=== PATIENT | male | born 1970 | race Hispanic/Latino ===

== ENCOUNTER 2019-11-02 16:46 | Inpatient (IN) | payer SELFPAY ==
[~2019-11-02] VITALS: Ht 177.8 cm; Wt 65.0 kg
[~2019-11-02 16:46] MED LIST: DULCOLAX SS100 MG PO; NAPROSYN500 MG PO; TYLENOL # 31 TAB PO
--- NOTE | 2019-11-02 16:54 | NUR ---
Pt ambulated to room # 8 with steady gait for bedside triage
--- NOTE | 2019-11-02 17:15 | NUR ---
IV ACCESS OBTAINED, LABS DRAWN AND PT EDUCATED REGARDING NEED FOR URINE SPECIMEN ALONG WITH EDUCATION ON PROPER COLLECTION TECHNIQUE. PT VERBALIZES UNDERSTNADING.
[2019-11-02 17:48] LABS: HEMATOCRIT 38.5 % (39.0-50.0); HEMOGLOBIN 13.9 g/dl (14.0-18.0); IMMATURE GRANULOCYTES 0.5 % (0.0-5.0); MEAN CELL VOLUME 88.9 fL CALC (80.0-100.0); MEAN CORPUSCULAR HGB 32.1 pG CALC (26.0-32.0); MEAN CORPUSCULAR HGB CONC 36.1 g/dL CAL (32.0-36.0); NEUT# 3.83 thou/uL (1.82-7.42); RED BLOOD COUNT 4.33 mill/uL (4.70-6.10); RED CELL DISTRI WIDTH 10.9 % (11.5-15.5)
--- NOTE | 2019-11-02 17:56 | NUR ---
PT TO RADIOLOGY VIA WHEELCHAIR, MEDICATED EARLIER FOR HYPERTENSION, WILL MONITOR B/P CLOSELY.
[2019-11-02 17:59] LABS: URINE BILIRUBIN - DIPSTICK NEGATIVE (NEGATIVE); URINE BLOOD DIPSTICK MODERATE (NEGATIVE); URINE COLOR YELLOW; URINE GLUCOSE - DIPSTICK >=1000 mg/dL (NEGATIVE); URINE KETONE TRACE mg/dL (NEGATIVE); URINE LEUK ESTERASE NEGATIVE (NEGATIVE); URINE NITRITE - DIPSTICK NEGATIVE (Negative); URINE PROTEIN - DIPSTICK NEGATIVE (NEG-TRACE); URINE SPECIFIC GRAVITY 1.015; URINE UROBILINOGEN - DIPSTICK >=8.0 E.U./dL (0.2)
[2019-11-02 18:06] LABS: ALBUMIN 3.2 g/dL (3.2-5.0); ALKALINE PHOSPHATASE 108 u/l (38-126); ANION GAP 13 (6-22 (CALC)); BUN 9 mg/dL (9-20); BUN/CREATININE RATIO 22 (12-20 (CALC)); CARBON DIOXIDE 26 mmol/l (22-30); CHLORIDE 90 mmol/l (95-108); CREATININE 0.4 mg/dL (0.7-1.3); GFR > 60 ML/MIN (>=60 (CALC)); GFR FOR AFR.AMER. > 60 ML/MIN (>=60 (CALC)); POTASSIUM 3.9 mmol/l (3.5-5.1); SGOT/AST 83 u/l (17-59); SODIUM 125 mmol/l (137-146); TOTAL PROTEIN 6.8 g/dL (6.3-8.2)
[2019-11-02 18:07] LABS: URINE WBC 0-2 WBC/hpf (0-5)
--- NOTE | 2019-11-02 18:29 | NUR ---
PT MEDICATED FOR ELEVATED BS ORDERED
[2019-11-02 18:58] LABS: C-REACTIVE PROTEIN 2.5 mg/dL (0-0.9)
--- NOTE | 2019-11-02 22:08 | NUR ---
Admission Note Report Given to: ISSA RIVERA Transported by: X Wheelchair Stretcher Transported with: X Nurse Transporter X Patent IV O2 X Car Blocker Location: ICU X MS2
[2019-11-02 22:23] VITALS: BP 119/84
--- NOTE | 2019-11-02 22:25 | NUR ---
RECEVIED FROM ER VIA WC INTO ROOM 283. PATIENT AMBULATED FROM WC TO STANDING SCALE FOR ADMISSION WEIGHT AND THEN TO BED. STANCE AND GAIT STABLE. RESP NON-LABORED. LUNGS DIMINISHED BUT CLEAR. SALINE LOCK INTACT IN RFA, SITE BENIGN. ADMISSION ASSESSMENT COMPLETED WITH ASSISTANCE OF JEREMY/MARTA. PATIENT IS BELARUSIAN SPEAKING, UNDERSTANDS SOME MACEDONIAN. ORIENTED TO SURROUNDINGS. EXPLAINED PLAN OF CARE, ISOLATION ROOM. DENIES NEEDS AT THIS TIME. CALL HAWLEY IN REACH.
[2019-11-02 23:45] VITALS: BP 141/90
--- NOTE | 2019-11-03 00:45 | NUR ---
PATIENT ASLEEP ON ORUNDS. AWAKENS TO NAME. BLOOD DRAWN FOR TROPONIN LEVEL ORDERED.
[2019-11-03 03:29] VITALS: BP 168/102
--- NOTE | 2019-11-03 04:30 | NUR ---
PATIENT AWAKENS TO NAME. PHOTO DOCUMENTATION COMPLETED OF ULCERS TO TOES. BLOOD DRAWN FOR AM LKABS ORDERED.
[2019-11-03 05:56] LABS: HEMATOCRIT 37.4 % (39.0-50.0); HEMOGLOBIN 13.1 g/dl (14.0-18.0); IMMATURE GRANULOCYTES 0.6 % (0.0-5.0); MEAN CELL VOLUME 90.3 fL CALC (80.0-100.0); MEAN CORPUSCULAR HGB 31.6 pG CALC (26.0-32.0); NEUT# 3.58 thou/uL (1.82-7.42); RED BLOOD COUNT 4.14 mill/uL (4.70-6.10); RED CELL DISTRI WIDTH 10.9 % (11.5-15.5)
[2019-11-03 06:24] LABS: ALKALINE PHOSPHATASE 81 u/l (38-126); ANION GAP 13 (6-22 (CALC)); BUN 9 mg/dL (9-20); BUN/CREATININE RATIO 22 (12-20 (CALC)); CALCULATED LDLCHOLESTEROL 66 mg/dL (62-129 (CALC)); CARBON DIOXIDE 23 mmol/l (22-30); CHLORIDE 95 mmol/l (95-108); CHOLESTEROL HDL RATIO 6.9 (<4.4 (CALC)); CREATININE 0.4 mg/dL (0.7-1.3); GFR > 60 ML/MIN (>=60 (CALC)); GFR FOR AFR.AMER. > 60 ML/MIN (>=60 (CALC)); HDL CHOLESTEROL 14 mg/dL (>=40); SGOT/AST 48 u/l (17-59); SODIUM 128 mmol/l (137-146); TOTAL CHOLESTEROL 97 mg/dl (0-199); TOTAL PROTEIN 5.7 g/dL (6.3-8.2); TOTAL TRIGLYCERIDES 86 mg/dl (30-149); VLDL CHOLESTROL 17 mg/dl (5-56 (CALC))
[2019-11-03 06:33] LABS: ALBUMIN 2.5 g/dL (3.2-5.0)
[2019-11-03 07:52] VITALS: BP 141/87
--- NOTE | 2019-11-03 08:05 | NUR ---
RECIEVED REPORT FROM ISSA RIVERA. PT IN SEMI FOWLERS POSITION EATINH BREAKFAST WHEN ENTERING ROOM. INTRODUCED SELF TO PT AND DISCUSSED POC.PT IS PERRED SPANISHED BUT DOES UNDERSTAND MAURITIAN. PT IS A/O X3 AND AMBULATORY. ASSESSMENT AND VITALS COMPLETED AT THIS TIME. BP 141/87, HR 105, O2 99% ON ROOM AIR. RESPIRATIONS ARE EVEN AND UNLABORED. LUNG SOUNDS ARE CLEAR. HEART RHYTHM IS NORMAL, TELE IN PLACE. BOWEL SOUNDS ARE ACTIVE, LAST REPORTED BM 11/03/19. RADIAL AND PEDAL PULSES ARE STRONG WITH NORMAL CAPILLARY REFILL. PT DOES PRESENT WITH SCABBED OVER SKIN BREAKDOWN ON TOES. PT REPORTS "ITS FROM WORKING IN [place]". NO EDEMA IN ANY EXTREMITIES. PT DENIES ANY PAIN OR DISCOMFORTS AT THIS TIME. ALL SAFTEY PRECAUTIONS IN PLACE WITH CALL LIGHT IN REACH. WILL CONTIUE TO MONITOR.
[2019-11-03 10:56] VITALS: BP 133/92
--- NOTE | 2019-11-03 11:35 | NUR ---
PT RESTING IN SEMI FOWLERS POSITION. RESPIRATIONS ARE EVEN AND UNLABORED AT THIS TIME. NOVOLOG GIVEN FOR GLUCOSE RESULTING IN 327. PT DENIES ANY PAIN OR DISOCOMFORTS AT THIS TIME. ALL SAFTEY PRECAUTIONS REMAIN IN PLACE WITH CALL LIGHT IN REACH AND TELE IN PLACE. WILL CONTINUE TO MONITOR
[2019-11-03 15:15] VITALS: BP 119/82
--- NOTE | 2019-11-03 16:40 | NUR ---
PT RESTING IN SEMI FOWLERS POSITION. RESPIRATIONS ARE EVEN AND UNLABORED WITH NO SIGNS OF DISTRESS. PT STARTED ON FLUIDS RUNNING AT 75 ML ORDERED NORVASC ALSO ORDERED. PT DENIES ANY PAIN OR DISCOMFORTS AT THIS TIME. ALL SAFTEY PRECAUTIONS REMAIN IN PLACE WITH CALL LIGHT IN REACH. WILL CONTINUE TO MONITOR
--- NOTE | 2019-11-03 19:00 | NUR ---
RECEIVED REPORT FROM NURSE SCHMITT, PATIENT RESTING IN BED, CURRENTLY WATCHING TV NO DISCOMFORTS NOTED AT THIS TIME, BREATHING EVEN AND UNLABORED.
[2019-11-03 19:07] VITALS: BP 125/88
--- NOTE | 2019-11-03 20:00 | NUR ---
PATIENT ALERT ORIENTED ABLE TO MAKE NEEDS KNOWN, GAMBIAN SPEAKING BUT ABLE TO UNDESTAND GUYANESE, DENIES PAIN AND DISCOMNFORTS WITH ONGOING IV OF NS @ 75CC/HR INFUSING WELL ON RFA, REMAINS ON TELE SR 84, BREATHING EVEN AND UNLABORED, CALL LIGHT AT REACH.
[2019-11-03 22:55] VITALS: BP 138/86
--- NOTE | 2019-11-04 | NUR ---
PATIENT APPEARS TO BE SLEEPING WITH EYES CLOSED EVEN UNLABORED RESPIRATION CA;LL LIGHT AT REACH.
[2019-11-04 03:55] VITALS: BP 133/90
--- NOTE | 2019-11-04 04:00 | NUR ---
PATIENT AWAKE AT THIS TIME, VOICE NO COMPLAINTS, NOT IN DISTRESS, CURRENTLY WATCHING TV, CALL LIGHT AT REACH.
--- NOTE | 2019-11-04 07:46 | NUR ---
SPOKE WITH MICRO LAB THIS AM, 2 OF 4 BOTTLES SHOW GRAM POSITIVE COCCI. VANCO ORDERED PER DR FLYNN
[2019-11-04 08:34] VITALS: BP 148/95
--- NOTE | 2019-11-04 08:56 | NUR ---
RECIEVED REPORT FROM ISSA LINCOLN. PT RESTING IN SEMI FOWLERS POSITION UPON ENTERING ROOM. ASSESSMENT AND VIATLS COMPLETED AT THIS TIME. BP 148/95, HR 79, O2 99% ON ROOM AIR. RESPIRATIONS ARE EVEN ADN UNLABORED. LUNG SOUNDS ARE CLEAR. HEART RHYTHM IS NORMAL, TELE IN PLACE.BOWEL SOUNDS ARE HYPOACTIVE,LAST REPORTED BM 11/04/19 EARLIER IN THE [place]. RADIAL AND PEDAL PULSES ARE STRONG WITH NORMAL CAPILLARY REFILL. PT DOES PRESENT WITH SKIN BREAK ON TOES. SITES ARE SCABBED OVER. PT STATES IT FROM "WORKING IN THE [place]", NO DRESSING ARE APPLIED. PT DENIES ANY PAIN OR DISCOMFORTS AT THIS TIME. ALL SAFTEY PERCAUTIONS IN PLACE WITH CALL LIGHT IN EACH. WILL CONTIUE TO MONITOR.
--- NOTE | 2019-11-04 11:30 | NUR ---
PT RESTING IN SEMI FOWLERS POSITION WATCHING TV. RESPIARTIONS ARE EVEN AND UNLABORED. ISSA MUIR CALLED IN ROOM TO ASSIST IN TRANSLATION. IN TRANSLATION, PT STATED HE "DIDNT HAVE ANY QUESTION OR NEEDS". PT DENIES ANY PAINS OR DISCOMFORTS AT THIS TIME. ALL SAFTEY PRECAUTIONS IN PLACE WITH CALL LIGHT IN REACH. WILL CONTINUE TO MONITOR
[2019-11-04 11:36] VITALS: BP 145/96
--- NOTE | 2019-11-04 15:03 | NUR ---
PT PRESENTS WITH MRSA PNEUMONIA AND GRAM POSITIVE COCCI GROWING IN 2/4 BLOOD CX. VANCOMYCIN ORDERED FOR PHARMACY TO DOSE. INITIATE VANCOMYCIN 1250MG IV Q12H. DRAW TROUGH 30 MIN B4 4TH DOSE ON 11/04 @ 1930. GOAL TROUGH = 15-20 MCG/ML. PHARMACY WILL CONTINUE TO FOLLOW.
[2019-11-04 16:03] VITALS: BP 162/99
--- NOTE | 2019-11-04 16:45 | NUR ---
REASSESSMENT OF VITALS BP 161/99, HR 85, O2 96%. RESPIRATIONS ARE EVEN AND UNLABORED AT THIS TIME ALL SAFTEY PRECAUTIONS REMAIN IN PLACE WITH CALL LIGHT IN REACH. WILL CONTINUE TO MONITOR
--- NOTE | 2019-11-04 20:00 | NUR ---
PT RESTING IN BED, NO SIGNS OF DISTRESS NOTED, RESP EVEN AND UNLABORED, PT SPEAKS [place], UNION LABORER SPOKE WITH PT IN [place]. DISCUSSED POC, PT VERBALIZED UNDERSTANDING. DISCUSSED ANTIBIOTICS WITH PT AND PT AGREED TO HAVE ANOTHER IV FOR ANTIBIOTICS, NOTED SCABS TO TOES, SEE CHART FOR PHOTO. ASSESSMENT COMPLETED, CALL LIGHT IN REACH,CONTINUE TO MONITOR.
[2019-11-04 20:30] VITALS: BP 158/88
--- NOTE | 2019-11-04 20:55 | NUR ---
DIABETES NURSE RETURNED FOR IV SITE, #20G PLACED TO L WRIST FOR JENNIFERO, PT TOLERATED WELL. CALL LIGHT IN REACH,CONTINUE TO MONITOR.
[2019-11-04 23:25] VITALS: BP 179/100
[2019-11-05] VITALS (9 sets, daily range): BP systolic 117–167; BP diastolic 56–104
--- NOTE | 2019-11-05 00:22 | NUR ---
RN AT BEDSIDE GIVING IV APRESOLINE, MANUAL BP 179/100.
--- NOTE | 2019-11-05 04:35 | NUR ---
PT RESTING IN BED, DISCUSSED AM LABS, PT VERBALIZED UNDERSTANDING. LABS OBTAINED, PT TOLERATED WELL. CALL LIGHT IN REACH,CONTINUE TO MONITOR.
[2019-11-05 05:35] LABS: HEMATOCRIT 39.3 % (39.0-50.0); HEMOGLOBIN 13.8 g/dl (14.0-18.0); IMMATURE GRANULOCYTES 0.4 % (0.0-5.0); MEAN CELL VOLUME 90.3 fL CALC (80.0-100.0); MEAN CORPUSCULAR HGB 31.7 pG CALC (26.0-32.0); MEAN CORPUSCULAR HGB CONC 35.1 g/dL CAL (32.0-36.0); NEUT# 2.9 thou/uL (1.82-7.42); RED BLOOD COUNT 4.35 mill/uL (4.70-6.10); RED CELL DISTRI WIDTH 11.1 % (11.5-15.5)
[2019-11-05 06:10] LABS: ALBUMIN 2.8 g/dL (3.2-5.0); ALKALINE PHOSPHATASE 101 u/l (38-126); ANION GAP 10 (6-22 (CALC)); BILIRUBIN, TOTAL 0.7 mg/dL (0.0-1.4); BUN 8 mg/dL (9-20); BUN/CREATININE RATIO 19 (12-20 (CALC)); CARBON DIOXIDE 25 mmol/l (22-30); CHLORIDE 100 mmol/l (95-108); CREATININE 0.4 mg/dL (0.7-1.3); GFR > 60 ML/MIN (>=60 (CALC)); GFR FOR AFR.AMER. > 60 ML/MIN (>=60 (CALC)); POTASSIUM 3.8 mmol/l (3.5-5.1); SGOT/AST 42 u/l (17-59); SODIUM 131 mmol/l (137-146); TOTAL PROTEIN 6.2 g/dL (6.3-8.2)
--- NOTE | 2019-11-05 08:05 | NUR ---
PT SLEEPING IN BED AWAKENED TO COMPLETE ASSESSMENT. A&O X3. NO DISTRESS NOTED. LIGHT FLUSHING TO FACE NOTED. PT DENIES ANY EXCERTIONAL SOB OR PAIN AT THIS TIME. CIWA 0 AT THIS TIME. NO OTHER NEEDS AT THIS TIME. ASSESSMENT COMPLETED. DISCUSSED POC. ISOLATION PRECAUTIONS IN PLACE. CALL LIGHT IN REACH. CONTINUE TO MONITOR.
--- NOTE | 2019-11-05 15:34 | NUR ---
HYDRALAZINE 10MG GIVEN IVP FOR BP 166/104 HR 83
--- NOTE | 2019-11-05 17:17 | NUR ---
PT SITTING IN BED. NO DISTRESS NOTED. CALL LIGHT IN REACH. CONTINUE TO MONITOR
--- NOTE | 2019-11-05 19:30 | NUR ---
PT RESTING IN BED, NO SIGNS OF DISTRESS NOTED, RESP EVEN AND UNLABORED. PT ALERT AND ORIENTED X3, SW[place]ISH SPEAKING ONLY, TRANSIT CLERK SPEAKS SW[place]ISH. DISCUSSED POC, PT VOICES NO NEEDS OR COMPLAINTS AT THIS TIME. ASSESSMENT COMPLETED, CALL LIGHT IN REACH,CONTINUE TO MONITOR.
--- NOTE | 2019-11-05 21:10 | NUR ---
IV RASHAD INITIATED, PT VOICES NO NEEDS OR COMPLAINTS, CALL LIGHT IN REACH,CONTINUE TO MONITOR.
--- NOTE | 2019-11-05 22:15 | NUR ---
PT RESTING IN BED, DISCUSSED ORDERS FOR BLOOD CULTURES, PT VERBALIZED UNDERSTANDING. BLOOD CULTURES OBTAINED FROM TWO DIFFERENT SITES, PT TOLERATED WELL. CALL LIGHT IN REACH,CONTINUE TO MONITOR.
[2019-11-06] VITALS (7 sets, daily range): BP systolic 116–147; BP diastolic 83–93
--- NOTE | 2019-11-06 | NUR ---
PT HAS ELEVATED BP, RN AT BEDSIDE GIVING IV APRESOLINE.
--- NOTE | 2019-11-06 04:00 | NUR ---
PT RESTING IN BED, NO SIGNS OF DISTRESS NOTED, RESP EVEN AND UNLABORED. PT VOICES NO NEEDS OR COMPLAINTS AT THIS TIME. CALL LIGHT IN REACH,CONTINUE TO MONITOR.
--- NOTE | 2019-11-06 08:01 | NUR ---
PT SITTING IN BED EATING BREAKFAST. A&O X3. NO DISTRESS NOTED. SLIGHT FLUSHING TO FACE NOTED. PT DENIES ANY EXCERTIONAL SOB. NO OTHER NEEDS AT THIS TIME. ASSESSMENT COMPLETED. DISCUSSED POC. CALL LIGHT IN REACH. CONTINUE TO MONITOR.
--- NOTE | 2019-11-06 11:22 | NUR ---
PT SITTING IN BED. NO DISTRESS OR NEEDS AT THIS TIME. CALL LIGHT IN REACH. CONTINUE TO MONITOR.
--- NOTE | 2019-11-06 17:28 | NUR ---
PT SITTING IN CHAIR. NO DISTRESS OR NEEDS AT THIS TIME. CALL LIGHT IN REACH. CONTINUE TO MONITOR.
--- NOTE | 2019-11-06 22:10 | NUR ---
PT ASSESSMENT COMPLETED AT THIS TIME. IV ANTIBIOTIC THERAPY ADMINISTERED AND PM MEDICATIONS ORDERS PROVIDE. PT DENIES ANY PAIN/N/V, NO S/O DISTRESS NOTED. IV SITE TO RFA APPEARS HEALTHY AT THIS TIME.
--- NOTE | 2019-11-07 00:20 | NUR ---
IV PUMP SOUNDING, PT DENIES ANY NEEDS. HVAC DESIGNER WAS JUST IN OBTAINING V/S. NO S/O DISTRESS NOTED AT THIS TIME.
[2019-11-07 03:39] VITALS: BP 153/87
--- NOTE | 2019-11-07 05:05 | NUR ---
BLOOD DRAWN FOR LABS/UNABLE TO OBTAIN. WILL NOTIFY DAY NURSE/LAB. NO S/O DISTRESS NOTED AT THIS TIME.
--- NOTE | 2019-11-07 08:15 | NUR ---
LAB DRAWN BY MYSELF FOR TESTING
[2019-11-07 08:39] LABS: HEMATOCRIT 37.8 % (39.0-50.0); HEMOGLOBIN 13.1 g/dl (14.0-18.0); MEAN CELL VOLUME 90.2 fL CALC (80.0-100.0); MEAN CORPUSCULAR HGB 31.3 pG CALC (26.0-32.0); MEAN CORPUSCULAR HGB CONC 34.7 g/dL CAL (32.0-36.0); RED BLOOD COUNT 4.19 mill/uL (4.70-6.10); RED CELL DISTRI WIDTH 11.3 % (11.5-15.5)
[2019-11-07 08:55] LABS: ANION GAP 11 (6-22 (CALC)); BUN 13 mg/dL (9-20); BUN/CREATININE RATIO 35 (12-20 (CALC)); C-REACTIVE PROTEIN 0.9 mg/dL (0-0.9); CARBON DIOXIDE 24 mmol/l (22-30); CHLORIDE 100 mmol/l (95-108); CREATININE 0.4 mg/dL (0.7-1.3); GFR > 60 ML/MIN (>=60 (CALC)); GFR FOR AFR.AMER. > 60 ML/MIN (>=60 (CALC)); POTASSIUM 4.3 mmol/l (3.5-5.1); SODIUM 131 mmol/l (137-146)
[2019-11-07 09:30] VITALS: BP 90/61
--- NOTE | 2019-11-07 09:30 | NUR ---
ASSESSMENT IS COMLETED: IV SITE IS FREE FROM REDNESS OR EDEMA. HR IS REG,PULSES ARE STRONG X4, ABD IS SOFT WITH ACTIVE BS . BREATH SOUNDS ARE CLEAR BILATERALLY. NO C/O SOB. TELE MONITOR IN PLACE CONTINUE TO OSBERVE AND MONITOR.
[2019-11-07 10:26] VITALS: BP 90/61
[2019-11-07] MEDS ORDERED: AMLODIPINE BESYL5 MG PO (11:24)
[2019-11-07] MEDS ORDERED: GLIPIZIDE5 M2 PO (11:25)
[2019-11-07] MEDS ORDERED: METFORMIN500 M2 PO (11:26)
[2019-11-07] MEDS ORDERED: LEVAQUIN750 MG PO (11:27)
[2019-11-07] MEDS ORDERED: LIBRIUM25 M1 PO (11:27)
--- NOTE | 2019-11-07 13:10 | NUR ---
IV SITE DISCOMTINUED CATHETER INTACT. NO REDNESS OR EDEMA. DISCHARGE INSTRUCTIONS GIVEN AND INTERPRETED BY LEONORA WHATLEY. VERBALIZED UNDERSTANDING, WILL CALL PHARMACY TO SEE IF MEDS ARE READY Discharge instructions given. Patient verbalizes understanding of same. Discharged in stable condition via Ambulatory to Home with family. All belongings sent with pt.
--- NOTE | 2019-11-07 13:10 | NUR ---
PT HAS BEEN RELAXING IN THE CHAIR, NO DISTESS NOTED. IV SITE IS FREE FROM REDNESS OR EDEMA.
--- NOTE | 2019-11-07 14:46 | NUR ---
ALL THE TEACHING WERE SENT IN FINNISH. LEONORA WHATLEY SPOKE TO HIM ABOUT HIS MEDICATION AND HELPED MAKE A LIST OF TIMES FOR THE MEDS.
== END 2019-11-07 14:19 | disposition home or self-care (01) | DRG 177 ==
LOC: ED 16:46 → ED-I 20:14 → ED 20:29 → ED-I 20:30 → MS2 20:40
PROVIDERS: Nurse Practitioner Family; Student in an Organized Health Care Education/Training Program; ADMIT Internal Medicine; ATTEND Internal Medicine
DX: U07.1 COVID-19 (principal); J12.89 Other viral pneumonia; E87.1 Hypo-osmolality and hyponatremia; R78.81 Bacteremia; I10 Essential (primary) hypertension; E11.9 Type 2 diabetes mellitus without complications; F10.10 Alcohol abuse, uncomplicated
CPT/HCPCS: J1650; J3370; Q3014; Q9967